=== PATIENT | male | born 1955 | race Caucasian/White ===

== ENCOUNTER 2021-08-07 14:24 | Observation (INO) ==
[2021-08-07] MEDS ORDERED: Acetaminophen IV 1,000 MG/100 ML BAG IVPB ONE (14:36)
[2021-08-07] MEDS ORDERED: Morphine Sulfate 2 MG/ML SYRINGE IVP STA (14:50)
[2021-08-07] MEDS ORDERED: Orphenadrine 60 MG/2 ML VIAL IVP ONE (15:08)
[2021-08-07] MEDS: 0.9 % Sodium Chloride 1,000 ML IVC SCH (15:38)
[2021-08-07 17:34] LABS: Bilirubin,Urine Negative (Negative); Blood,Urine Negative (Negative); Clarity,Urine Clear (Clear); Color,Urine Light-Yellow (Yellow); Glucose,Urine (UA) Normal (Normal); Ketones,Urine 40 mg/dL (Negative); Leukocyte Esterase,Urine Negative (Negative); Nitrite,Urine Negative (Negative); Protein,Urine Negative (Neg-Trace); Specific Gravity,Urine > 1.030 (1.010-1.025); Urobilinogen,Urine Normal (Normal)
[2021-08-07] MEDS: Famotidine 20 MG/2 ML VIAL IVP SCH (17:48)
[2021-08-07] MEDS: Morphine Sulfate 2 MG/ML SYRINGE IVP PRN (20:41)
[2021-08-07] MEDS: Metoprolol 100 MG TABLET PO SCH (22:09)
[2021-08-08] MEDS: 0.9 % Sodium Chloride 1,000 ML IVC SCH (03:50)
[2021-08-08] MEDS ORDERED: Acetaminophen IV 1,000 MG/100 ML BAG IVPB ONE (04:47)
[2021-08-08] MEDS: Famotidine 20 MG/2 ML VIAL IVP SCH ×2 (05:11→17:38)
[2021-08-08] MEDS: Metoprolol 100 MG TABLET PO SCH (09:13)
[2021-08-08] MEDS: Acetaminophen IV 1,000 MG/100 ML BAG IVPB SCH ×4 (09:13→23:48)
[2021-08-08] MEDS: Morphine Sulfate 2 MG/ML SYRINGE IVP PRN ×3 (11:21→21:56)
[2021-08-08] MEDS: Ondansetron 4 MG/2 ML VIAL IVP PRN (11:25)
[2021-08-08] MEDS ORDERED: *HR* OxyCODONE Immed Rel 5 MG TABLET PO PRN (11:55)
[2021-08-08] MEDS: *HR* OxyCODONE Immed Rel 5 MG TABLET PO PRN ×2 (13:04→19:29)
[2021-08-08] MEDS: hydroCHLOROthiazide 25 MG TABLET PO SCH (17:38)
[2021-08-09] MEDS: *HR* OxyCODONE Immed Rel 5 MG TABLET PO PRN ×4 (01:44→18:19)
[2021-08-09] MEDS: Famotidine 20 MG/2 ML VIAL IVP SCH ×2 (05:33→18:20)
[2021-08-09] MEDS: Morphine Sulfate 2 MG/ML SYRINGE IVP PRN ×2 (05:34→15:11)
[2021-08-09] MEDS: hydroCHLOROthiazide 25 MG TABLET PO SCH ×2 (08:14→16:37)
[2021-08-09] MEDS ORDERED: Morphine Sulfate 2 MG/ML SYRINGE IVP PRN (08:45)
[2021-08-09] MEDS ORDERED: Morphine Sulfate 2 MG/ML SYRINGE IVP ONE (09:30)
[2021-08-09] MEDS: Ondansetron 4 MG/2 ML VIAL IVP PRN (14:09)
[2021-08-09] MEDS: tiZANidine 4 MG TABLET PO SCH ×2 (15:12→21:07)
[2021-08-10] MEDS: *HR* OxyCODONE Immed Rel 5 MG TABLET PO PRN (03:42)
[2021-08-10 05:42] LABS: Eosinophils % 1.3 %; Immature Granulocytes % 0.3 % (0-4); Monocytes % 7.2 %
[2021-08-10 05:45] LABS: Basophils % 0.3 %; Eosinophils # 0.1 K/mcL (0.0-0.6); Hematocrit 43.3 % (37.5-50.1); Hemoglobin 14.4 g/dL (12.9-16.9); Immature Platelets 6.2 % (1.1-6.1); Lymphocytes # 1.9 K/mcL (0.6-4.6); Lymphocytes % 20.2 %; Mean Corpuscular HGB Conc 33.3 g/dL (31.6-35.5); Mean Corpuscular Hemoglobin 30.6 pg (28.0-33.3); Mean Corpuscular Volume 91.9 fL (83.0-100.0); Mean Platelet Volume 10.7 fL (9.4-12.4); Monocytes # 0.7 K/mcL (0.0-1.3); Neutrophils # 6.8 K/mcL (1.6-8.9); Platelet Count 144 K/mcL (140-400); Red Blood Count 4.71 M/mcL (4.19-5.50); Red Cell Distribution Width 12.8 % (11.5-14.5); Segmented Neutrophils % 70.7 %; White Blood Count 9.6 K/mcL (4.3-11.1)
[2021-08-10] MEDS: Morphine Sulfate 2 MG/ML SYRINGE IVP PRN (06:06)
[2021-08-10] MEDS ORDERED: Famotidine 20 MG TABLET PO SCH (07:30)
[2021-08-10 07:54] LABS: BUN/Creatinine Ratio 9 (6-26); Blood Urea Nitrogen 9 mg/dL (8-23); Calcium 9.8 mg/dL (8.6-10.3); Carbon Dioxide 31 mEq/L (23-29); Chloride 98 mEq/L (98-107); Glucose 124 mg/dL (70-105); Osmolality,Calculated 280 (280-300); Potassium 3.3 mEq/L (3.5-5.1); Sodium 135 mEq/L (136-145); eGFR For African Americans > 60 (> 60); eGFR For Non-African Americans > 60 (> 60)
[2021-08-10] MEDS: tiZANidine 4 MG TABLET PO SCH (08:14)
[2021-08-10] MEDS: hydroCHLOROthiazide 25 MG TABLET PO SCH (08:14)
[2021-08-10] MEDS ORDERED: Potassium Chloride Elixir 20 MEQ/15 ML UDC PO ONE (08:21)
[2021-08-10] MEDS: Ondansetron 4 MG/2 ML VIAL IVP PRN (08:43)
[2021-08-10 10:17] VITALS: BP 115/83; PULSE 60; TEMP 98.5; O2SAT 95
[2021-08-10] MEDS ORDERED: Gabapentin 300 MG CAPSULE PO SCH (10:45)
[2021-08-10] MEDS ORDERED: predniSONE 20 MG TABLET PO ONE (11:59)
== END 2021-08-10 14:29 | disposition home or self-care (01) ==
LOC: 3ANU → SUATTDRO 14:29
PROVIDERS: ADMIT Surgery; ATTEND Internal Medicine